=== PATIENT | male | born 1990 | race Caucasian/White ===

== ENCOUNTER → 2018-02-21 | Day surgery (SDC) | payer BC ==
[~2018-02-21] MED LIST: CIPRO500 MG PO; FENTANYL CITRATE/PF 100MCG/2 ML INJ ONE; FLAGYL250 MG PO; HYOSCYAMINE SULFATE 0.5 MG/ML INJ ONE; LEVAQUIN500 MG PO; MIDAZOLAM HCL 5MG/ML 2ML VIAL ONE; PROPOFOL IV EMULSION 10 MG/ML 50 ML VIAL ONE
[2018-02-21 09:30] VITALS: BP 121/73
--- NOTE | 2018-02-21 09:56 | Operative Report ---
DATE OF PROCEDURE: February 21, 2018 PROCEDURE PERFORMED: Colonoscopy with biopsies. REFERRING PHYSICIAN: Dr. Jorge Marie INDICATIONS FOR COLONOSCOPY: History of diverticulitis. MEDICATION: Patient was done under MAC. Please see anesthesiologist note. PROCEDURE IN DETAIL: With the patient in left lateral decubitus position, flexible fiberoptic Olympus colonoscope was inserted into the rectum with ease and advanced all the way to the cecum. The scope was then withdrawn slowly. Mucosa overlying the cecum appeared to be within normal limits. Scattered diverticular disease was pretty much noted throughout the colon. There were some mild patchy inflammatory changes noted in the left colon. Random biopsies were obtained. Similar findings were noted in the rectum, biopsies were obtained. The scope was then retroflexed into the distal rectum, and small internal hemorrhoids were noted, none of which was actively bleeding. The scope was then straightened out. It was subsequently withdrawn. Patient tolerated the procedure well. IMPRESSION: 1. Pandiverticulosis. 2. Mild patchy left-sided colitis. 3. Proctitis. 4. Internal hemorrhoids, none actively bleeding. PLAN: Follow up histology. Initiate VSL#3 1 p.o. every day. Job#: [id number] cc:JORGE MARIE DO
== END | disposition home or self-care (01) ==
LOC: OR 05:51
PROVIDERS: ATTEND Internal Medicine Gastroenterology
DX: Z09 Encounter for follow-up examination after completed treatment for conditions other than malignant neoplasm (principal); K51.50 Left sided colitis without complications; K57.30 Diverticulosis of large intestine without perforation or abscess without bleeding; K62.89 Other specified diseases of anus and rectum; K64.8 Other hemorrhoids; Z68.36 Body mass index [BMI] 36.0-36.9, adult; Z87.01 Personal history of pneumonia (recurrent)
CPT/HCPCS: 45380; J1980; J2250; 45378

== ENCOUNTER 2018-09-07 09:30 | Inpatient (IN) | payer BC ==
[~2018-09-07] VITALS: Ht 172.7 cm; Wt 107.6 kg
[~2018-09-07 09:30] MED LIST changes: -FENTANYL CITRATE/PF 100MCG/2 ML INJ ONE; -HYOSCYAMINE SULFATE 0.5 MG/ML INJ ONE; -MIDAZOLAM HCL 5MG/ML 2ML VIAL ONE; -PROPOFOL IV EMULSION 10 MG/ML 50 ML VIAL ONE
[2018-09-07] MEDS ORDERED: SODIUM CHLORIDE 0.9% 1000ML 1,000 ML IV STA (10:17)
[2018-09-07] MEDS ORDERED: PANTOPRAZOLE 40 MG 10ML VIAL IV NR (10:17)
[2018-09-07] MEDS ORDERED: ONDANSETRON HCL INJ 2MG/ML 2ML 2 MG/ML VIAL IV NR (10:30)
[2018-09-07] MEDS ORDERED: MORPHINE SULFATE INJ 4 MG/ML INJ 1ML IV ONE (10:30)
[2018-09-07 10:54] LABS: BASOPHILS # (AUTO) 0.1 (0.0-0.1); BASOPHILS % 0.6 % (0.0-1.0); EOSINOPHILS % 0.2 % (0.0-6.0); HEMOGLOBIN 13.5 g/dL (14.0-18.0); LYMPHOCYTES # (AUTO) 1.8 (1.0-3.2); LYMPHOCYTES % 14.5 % (18.0-39.1); MEAN CORPUSCULAR HEMOGLOBIN 29.4 pg (28-32); MEAN CORPUSCULAR HGB CONC 32.9 g/dL (31-35); MEAN CORPUSCULAR VOLUME 89.3 fL (81-99); NEUTROPHILS # (AUTO) 9.6 (2.1-6.9); NEUTROPHILS % 76.4 % (38.7-80.0); PLATELET COUNT 401 x10e3/uL (140-360); RED BLOOD COUNT 4.59 x10e6/uL (4.3-5.7); RED CELL DISTRIBUTION WIDTH 12.3 % (11.7-14.4)
[2018-09-07 11:08] LABS: CLARITY,URINE HAZY (CLEAR); COLOR,URINE YELLOW (YELLOW)
[2018-09-07 11:09] LABS: BILIRUBIN,URINE NEGATIVE (NEGATIVE); KETONES,URINE NEGATIVE (NEGATIVE); LEUKOCYTE ESTERASE ,URINE NEGATIVE (NEGATIVE); NITRITE,URINE NEGATIVE (NEGATIVE); PROTEIN,URINE DIPSTICK NEGATIVE (NEGATIVE); URINE UROBILINOGEN 0.2 mg/dL (0.2 - 1)
[2018-09-07 11:10] LABS: INR 1.2; PROTHROMBIN TIME 15.8 seconds (11.9-14.5)
[2018-09-07] MEDS: PIPER-TAZ 3.375 GM 50 ML IV SCH ×3 (11:10→23:47)
[2018-09-07 11:11] LABS: PARTIAL THROMBOPLASTIN TIME 33.7 seconds (23.8-35.5)
[2018-09-07 11:14] LABS: AMORPHOUS SEDIMENT,URINE MANY (FEW); BACTERIA,URINE MANY /HPF; EPITHELIAL CELLS,URINE MODERATE /LPF; RBC,URINE 0-5 /HPF (0-5); WBC,URINE (MAN) 0-5 /HPF (0-5)
[2018-09-07] MEDS ORDERED: DIATRIZOATE MEGL/DIATRIZOA SOD 30 ML BTL PO ONE (11:14)
[2018-09-07 11:15] LABS: CALCIUM OXALATE CRYSTALS,UR FEW (FEW); MUCUS,URINE MODERATE (RARE)
[2018-09-07 11:20] LABS: ALANINE AMINOTRANSFERASE 18 IU/L (0-55); ALBUMIN 3.3 g/dL (3.5-5.0); ALBUMIN/GLOBULIN RATIO 0.8 (0.8-2.0); ALKALINE PHOSPHATASE 58 IU/L (40-150); ANION GAP 13.1 mmol/L (8-16); BLOOD UREA NITROGEN < 5 mg/dL (7-26); CALCIUM 9.4 mg/dL (8.4-10.2); CARBON DIOXIDE 25 mmol/L (22-29); CHLORIDE 103 mmol/L (98-107); EST GLOMERULAR FILTRATION RATE > 60 ML/MIN (60-); GLUCOSE 91 mg/dL (74-118); MAGNESIUM 2.4 MG/DL (1.3-2.1); POTASSIUM 4.1 mmol/L (3.5-5.1); SODIUM 137 mmol/L (136-145)
[2018-09-07 11:21] LABS: BUN/CREATININE RATIO 6 (6-25)
[2018-09-07] MEDS: METRONIDAZOLE 500MG/NS 100ML 100 ML IV SCH ×3 (11:47→18:08)
[2018-09-07] MEDS ORDERED: SODIUM CHLORIDE 0.9% 50ML 50 ML ONE (13:03)
[2018-09-07] MEDS ORDERED: IOPAMIDOL 370 MG/ML 200 ML INFUS..BTL INJ ONE (13:03)
--- NOTE | 2018-09-07 13:12 | Diagnostic Imaging Report ---
EXAM: CT Abdomen and Pelvis WITH contrast INDICATION: Lower abdominal pain, query diverticulitis. COMPARISON: CT abdomen/pelvis without contrast 01/11/2018. TECHNIQUE: Abdomen and pelvis were scanned utilizing a multidetector helical scanner from the lung base to the pubic symphysis after administration of IV contrast. Coronal and sagittal reformations were obtained. Routine protocol was performed. Scan was performed when during portal venous phase. IV CONTRAST: 100 cc of Isovue-370. ORAL CONTRAST: Gastrografin COMPLICATIONS: None RADIATION DOSE: Total DLP: 908.7 mGy*cm Dose modulation, iterative reconstruction, and/or weight based adjustment of the mA/kV was utilized to reduce the radiation dose to as low as reasonably achievable. FINDINGS: LINES and TUBES: None. LOWER THORAX: Unremarkable HEPATOBILIARY: Subcentimeter hepatic hypodensities are too small to characterize, but likely represent cysts. No biliary ductal dilation. GALLBLADDER: No radio-opaque stones or sludge. No wall thickening. SPLEEN: No splenomegaly. PANCREAS: No focal masses or ductal dilatation. ADRENALS: No adrenal nodules KIDNEYS/URETERS: Kidneys enhance symmetrically. No evidence of hydronephrosis, solid mass, or stone. Unchanged appearance of 3.9 cm cyst within the right kidney. Subcentimeter hypodensities in the left kidney are too small to characterize, but may represent cysts. GI TRACT: There is diffuse colonic diverticulosis with focal sigmoid colonic wall thickening and stranding, as seen on series 2, image 69. No evidence of bowel obstruction. Normal appendix. PELVIC ORGANS/BLADDER: Unremarkable. LYMPH NODES: No lymphadenopathy. VESSELS: Unremarkable. PERITONEUM / RETROPERITONEUM: No free air or fluid. BONES AND SOFT TISSUES: Unremarkable. CONCLUSION: Findings of acute sigmoid colonic diverticulitis. No evidence of gross perforation or drainable fluid collection. Signed by: Dr. Robin Krishnamurthy MD on 09/07/2018 1:08 PM
[2018-09-07 13:45] VITALS: BP 119/67
--- NOTE | 2018-09-07 13:45 | NUR ---
PATIENT RECEIVED PER STRETCHER FROM ER. ALERT AND VERBALLY RESPONSIVE. TRANSFERRED SELF FROM STRETCHER TO BED. SKIN WARM AND DRY TO TOUCH WITH TATOOS ALL OVER THE BODY. RESPIRATION EVEN AND UNLABORED, ABDOMEN SOFT AND NON DISTENDED. PATIENT ORIENTED TO SURROUNDINGS. BED IN LOWER POSITION, CALL LIGHT AT REACH. INSTRUCTED TO CALL FOR ASSISTANCE NEEDED.
[2018-09-07] MEDS: SODIUM CHLORIDE 0.9% 1000ML 1,000 ML IV SCH (14:45)
[2018-09-07] MEDS: ONDANSETRON HCL INJ 2MG/ML 2ML 2 MG/ML VIAL IV PRN (16:50)
[2018-09-07] MEDS: MORPHINE SULFATE INJ 4 MG/ML INJ 1ML IV PRN (16:50)
[2018-09-07 18:30] VITALS: BP 106/64
[2018-09-07 20:00] VITALS: BP_SYST 106; BP_SYST 113; BP_DIAS 54; BP_DIAS 64
[2018-09-08] MEDS: SODIUM CHLORIDE 0.9% 1000ML 1,000 ML IV SCH ×4 (00:23→23:30)
[2018-09-08] MEDS: ONDANSETRON HCL INJ 2MG/ML 2ML 2 MG/ML VIAL IV PRN ×3 (00:24→23:30)
[2018-09-08] MEDS: MORPHINE SULFATE INJ 4 MG/ML INJ 1ML IV PRN (00:24)
[2018-09-08] MEDS: METRONIDAZOLE 500MG/NS 100ML 100 ML IV SCH ×4 (00:24→19:20)
[2018-09-08] MEDS: PIPER-TAZ 3.375 GM 50 ML IV SCH (05:39)
[2018-09-08 06:22] LABS: BASOPHILS # (AUTO) 0.1 (0.0-0.1); EOSINOPHILS # (AUTO) 0.1 (0.0-0.4); EOSINOPHILS % 1.3 % (0.0-6.0); HEMATOCRIT 37.8 % (38.2-49.6); HEMOGLOBIN 12.2 g/dL (14.0-18.0); LYMPHOCYTES # (AUTO) 2.9 (1.0-3.2); LYMPHOCYTES % 33.4 % (18.0-39.1); MEAN CORPUSCULAR HEMOGLOBIN 28.8 pg (28-32); MEAN CORPUSCULAR HGB CONC 32.3 g/dL (31-35); MEAN CORPUSCULAR VOLUME 89.4 fL (81-99); MONOCYTES # (AUTO) 0.7 (0.2-0.8); MONOCYTES % 8.2 % (4.4-11.3); NEUTROPHILS # (AUTO) 4.9 (2.1-6.9); NEUTROPHILS % 55.8 % (38.7-80.0); PLATELET COUNT 383 x10e3/uL (140-360); RED BLOOD COUNT 4.23 x10e6/uL (4.3-5.7); RED CELL DISTRIBUTION WIDTH 12.3 % (11.7-14.4)
[2018-09-08 06:58] LABS: ALANINE AMINOTRANSFERASE 16 IU/L (0-55); ALBUMIN 2.9 g/dL (3.5-5.0); ALBUMIN/GLOBULIN RATIO 0.8 (0.8-2.0); ALKALINE PHOSPHATASE 45 IU/L (40-150); ANION GAP 10.8 mmol/L (8-16); BLOOD UREA NITROGEN 6 mg/dL (7-26); BUN/CREATININE RATIO 6 (6-25); CALCIUM 9.1 mg/dL (8.4-10.2); CARBON DIOXIDE 27 mmol/L (22-29); CHLORIDE 106 mmol/L (98-107); CREATININE, SERUM 0.94 mg/dL (0.72-1.25); EST GLOMERULAR FILTRATION RATE > 60 ML/MIN (60-); GLUCOSE 81 mg/dL (74-118); POTASSIUM 4.8 mmol/L (3.5-5.1); SODIUM 139 mmol/L (136-145)
[2018-09-08 08:00] VITALS: BP 119/58
[2018-09-08] MEDS ORDERED: HYDROCODONE/APAP 5MG-325MG TAB PO PRN (08:00)
[2018-09-08 09:46] VITALS: BP 119/58
[2018-09-08] MEDS: CIPROFLOXACIN 400 MG/D5W 200ML 200 ML IV SCH ×2 (09:59→20:54)
[2018-09-08 12:00] VITALS: BP 125/69
--- NOTE | 2018-09-08 14:15 | History and Physical ---
SUBJECTIVE: Left lower quadrant abdominal pain. HISTORY OF PRESENT ILLNESS: This is a 28-year-old male with past medical history of diverticulitis in the past, comes into the ED with complaints of left lower quadrant abdominal pain ongoing since Saturday of last week. He reports that the pain has been appreciated early severe. Reports having some constipation earlier in the week. Denies any chest pain, palpitation. Reports some nausea, but no vomiting. He now reports having some diarrhea. He did follow up with his PCP earlier in the week since then to an imaging center, was told to have constipation and told them to take some stool softeners. Here, imaging studies was consistent with acute diverticulitis. The patient sees Dr. Colindres for a GI specialist. The patient is seen and evaluated at bedside on the medical floor. He is currently doing well with no other issues at this time. REVIEW OF SYSTEMS: Pertinent positive left lower quadrant abdominal pain, decreased oral intake. Pertinent negatives: Denies any chest pain, palpitation, nausea, vomiting, diarrhea, dysuria, hematuria, frequency, urgency, lightheadedness, dizziness, cough, congestion, fever, or any other complaints. The rest of 14-point review of systems are reviewed with the patient and are negative. ALLERGIES: NO KNOWN DRUG ALLERGIES. HOME MEDICATIONS: He takes none. PAST MEDICAL HISTORY: Diverticulitis in the past. PAST SURGICAL HISTORY: None. FAMILY HISTORY: Hypertension, diabetes. SOCIAL HISTORY: No drugs or alcohol. Does not smoke. Good social support. PHYSICAL EXAMINATION: VITAL SIGNS: Temperature is 98.2, pulse 82, respiratory rate is 18, blood pressure 113/54, pulse ox 99% on room air. GENERAL: Not in acute distress. Alert, oriented x3. Cooperative on examination. HEENT: Head is normocephalic and atraumatic. Eyes; pupils are equal, round, and reactive to light bilaterally. Extraocular movements are intact bilaterally. NECK: Supple. Good range of motion. Throat, no evidence of erythema or exudate in the posterior pharynx. Has poor dentition. PULMONARY: Clear to auscultation bilaterally. No wheezing, rales, or rhonchi. No crackles appreciated. CARDIOVASCULAR: Positive S1, S2. No murmurs, rubs, or gallops. ABDOMEN: Soft. Bowel sounds present. He was tender to palpation left lower quadrant. No rebound. No guarding. MUSCULOSKELETAL: Strength is 5/5 throughout. No evidence of any muscle deficits on examination. No weakness appreciated. NEUROLOGICAL: Cranial nerves II through XII grossly intact. No evidence of any neurological deficits on exam. SKIN: Intact. Warm to touch. Good cap refill. PSYCHIATRIC: Normal affect and mood. EXTREMITIES: No edema. Good range of motion throughout. LAB FINDINGS: Show white count 8.7, hemoglobin 12, hematocrit 37, and platelets of 383. Coagulation; PT 15, INR 1.2, PTT 33. Chemistry; sodium 139, potassium 4.8, chloride is 106, bicarb 27, anion gap of 10, BUN 6, creatinine 0.94, glucose is 81. Lactic acid 7.3, which is normal at this hospital. Calcium is 9.1. LFTs were normal. Urinalysis seems to be normal. Microbiology, blood and urine cultures are pending. IMAGING STUDIES: CT abdomen and pelvis shows findings of acute sigmoid colonic diverticulitis. No evidence of gross perforation, drainable fluid collection. IMPRESSION: 1. Acute sigmoid diverticulitis. 2. Nausea with decreased oral intake. 3. Leukocytosis, improving. PLAN: At this time, continue with IV Cipro and Flagyl. Pain control. Nausea medication. Clear liquid diet, advance as tolerated. GI consultation. Reconcile home medications. Discussed plan of care with the patient with nurse present. The patient verbalized understanding. MD BETHANY Carvalho/MODL /[id number]
[2018-09-08 16:00] VITALS: BP 124/60
--- NOTE | 2018-09-08 19:00 | NUR ---
patient received awake, alert, sitting up in bed. no c/o pain noted. ivf continue to infuse without difficulty. pm assessment complete. patient instructed to call for assistance when needed.
--- NOTE | 2018-09-08 19:20 | NUR ---
patient medicated with zofran 4 mg ivp for c/o nausea at this time.
--- NOTE | 2018-09-08 19:20 | NUR ---
1800 flagyl not given. 1800 flagyl given at this time.
[2018-09-08 19:30] VITALS: BP 126/60
[2018-09-08 19:53] VITALS: BP 126/60
--- NOTE | 2018-09-08 20:54 | NUR ---
iv to right ac d/c'd due to leaking at the site. clean dressing applied to site. new #20 gauge placed to the right forearm x 1 stick. ivf/ivabx resumed.
[2018-09-09] VITALS (7 sets, daily range): BP systolic 91–135; BP diastolic 54–91
[2018-09-09] MEDS: MORPHINE SULFATE INJ 4 MG/ML INJ 1ML IV PRN (02:00)
--- NOTE | 2018-09-09 02:00 | NUR ---
patient medicated with morphine 4 mg ivp for abd pain 7/10 at this time.
[2018-09-09] MEDS: METRONIDAZOLE 500MG/NS 100ML 100 ML IV SCH ×5 (05:52→23:06)
[2018-09-09 06:23] LABS: BASOPHILS # (AUTO) 0.1 (0.0-0.1); BASOPHILS % 1.2 % (0.0-1.0); EOSINOPHILS # (AUTO) 0.1 (0.0-0.4); EOSINOPHILS % 1.3 % (0.0-6.0); HEMATOCRIT 37.8 % (38.2-49.6); HEMOGLOBIN 12.4 g/dL (14.0-18.0); LYMPHOCYTES # (AUTO) 2.5 (1.0-3.2); LYMPHOCYTES % 36.5 % (18.0-39.1); MEAN CORPUSCULAR HEMOGLOBIN 29.1 pg (28-32); MEAN CORPUSCULAR HGB CONC 32.8 g/dL (31-35); MEAN CORPUSCULAR VOLUME 88.7 fL (81-99); MONOCYTES # (AUTO) 0.6 (0.2-0.8); MONOCYTES % 8.5 % (4.4-11.3); NEUTROPHILS # (AUTO) 3.6 (2.1-6.9); NEUTROPHILS % 52.1 % (38.7-80.0); PLATELET COUNT 403 x10e3/uL (140-360); RED BLOOD COUNT 4.26 x10e6/uL (4.3-5.7)
[2018-09-09 06:42] LABS: ANION GAP 12.7 mmol/L (8-16); BLOOD UREA NITROGEN 5 mg/dL (7-26); BUN/CREATININE RATIO 6 (6-25); CARBON DIOXIDE 23 mmol/L (22-29); CHLORIDE 104 mmol/L (98-107); EST GLOMERULAR FILTRATION RATE > 60 ML/MIN (60-); GLUCOSE 77 mg/dL (74-118); POTASSIUM 3.7 mmol/L (3.5-5.1); SODIUM 136 mmol/L (136-145)
--- NOTE | 2018-09-09 07:16 | NUR ---
pt alert resp even ad unlabored at this time no distress noted, pt able to make needs known, call light in reach.
[2018-09-09] MEDS: CIPROFLOXACIN 400 MG/D5W 200ML 200 ML IV SCH ×2 (09:13→20:18)
[2018-09-09] MEDS: SODIUM CHLORIDE 0.9% 1000ML 1,000 ML IV SCH ×3 (09:13→23:06)
--- NOTE | 2018-09-09 10:26 | NUR ---
dr. de leon here to see pt.
--- NOTE | 2018-09-09 13:35 | Progress Note ---
DATE: 09/09/2018 Medicine Progress Note SUBJECTIVE: The patient still reports having some left lower quadrant abdominal pain. He is still on a clear liquid diet. He has been afebrile. LABORATORY DATA: Lab findings, white count 6.9, hemoglobin 12.1, hematocrit of 38, platelets of 403. Coagulation is normal. Chemistry; sodium 133, potassium 3.7, chloride 104, bicarb is 23, anion gap of 12, BUN is 5, creatinine is 0.8, glucose 77, calcium is 9. MICROBIOLOGY: Blood cultures negative. Urine cultures were negative. IMAGING STUDIES: None. PHYSICAL EXAMINATION: VITAL SIGNS: Temperature 97.8, pulse 90, respiratory rate is 16, blood pressure 109/63, pulse ox 99% on room air. GENERAL: Not in acute distress. Alert and oriented x3. Cooperative on examination. HEENT: Head is normocephalic, atraumatic. Eyes, pupils are equal, round, and reactive to light bilaterally. Extraocular movements are intact bilaterally. Throat, no evidence of any erythema or exudates in the posterior pharynx. Has poor dentition. NECK: Supple. Good range of motion. PULMONARY: Clear to auscultation bilaterally. No wheezing, no rales, no rhonchi, and no crackles. CARDIOVASCULAR: Positive S1, S2. No murmurs, rubs, or gallops appreciated. ABDOMEN: Soft, nondistended, and tender to palpation in the left lower quadrant. Bowel sounds present. MUSCULOSKELETAL: Strength is 5/5 throughout. No evidence of any muscle deficits on examination. No weakness appreciated. NEUROLOGIC: Cranial nerves 2 through 12 are grossly intact. No evidence of neurological deficits on exam. SKIN: Intact. Warm to touch. Good cap refill. PSYCHIATRIC: Normal affect and mood. EXTREMITIES: No edema. Good range of motion throughout. IMPRESSION: 1. Acute sigmoid diverticulitis. 2. Nausea with decreased oral intake, now improving. 3. Leukocytosis, improving. PLAN: At this time, continue with IV antibiotics of Cipro and Flagyl. He is on pain control. Clear liquid diet. Antinausea medication. Diet will be advanced per GI recommendations. The patient has questions about surgical intervention in the event, he needs to have sigmoid resection, in which I deferred this to the GI and which he can speak with the patient. Apparently, the patient has had at least 3 recurrences of sigmoid colitis as well. Otherwise, we will continue same plan of care. MD BETHANY Carvalho/ZAIDA /[id number]
--- NOTE | 2018-09-09 19:00 | NUR ---
patient received awake, alert, sitting up in recliner. no c/o pain noted. ivf continue to infuse without difficulty. pm assessment complete. patient instructed to call for assistance when needed.
--- NOTE | 2018-09-09 19:00 | NUR ---
report given to oncoming nurse,for continued care.
[2018-09-10] VITALS: BP 120/71
[2018-09-10 04:00] VITALS: BP 110/70
[2018-09-10] MEDS: METRONIDAZOLE 500MG/NS 100ML 100 ML IV SCH ×2 (05:09→11:15)
[2018-09-10 06:21] LABS: BASOPHILS # (AUTO) 0.1 (0.0-0.1); BASOPHILS % 1.1 % (0.0-1.0); EOSINOPHILS # (AUTO) 0.1 (0.0-0.4); EOSINOPHILS % 0.9 % (0.0-6.0); LYMPHOCYTES # (AUTO) 2.6 (1.0-3.2); LYMPHOCYTES % 35.1 % (18.0-39.1); MEAN CORPUSCULAR HEMOGLOBIN 28.8 pg (28-32); MEAN CORPUSCULAR HGB CONC 32.6 g/dL (31-35); MEAN CORPUSCULAR VOLUME 88.5 fL (81-99); MONOCYTES # (AUTO) 0.7 (0.2-0.8); MONOCYTES % 8.9 % (4.4-11.3); NEUTROPHILS % 53.5 % (38.7-80.0); PLATELET COUNT 454 x10e3/uL (140-360); RED BLOOD COUNT 4.86 x10e6/uL (4.3-5.7); RED CELL DISTRIBUTION WIDTH 11.9 % (11.7-14.4)
[2018-09-10 06:41] LABS: ANION GAP 11.3 mmol/L (8-16); BLOOD UREA NITROGEN 5 mg/dL (7-26); BUN/CREATININE RATIO 6 (6-25); CALCIUM 9.3 mg/dL (8.4-10.2); CARBON DIOXIDE 24 mmol/L (22-29); CHLORIDE 105 mmol/L (98-107); CREATININE, SERUM 0.81 mg/dL (0.72-1.25); EST GLOMERULAR FILTRATION RATE > 60 ML/MIN (60-); GLUCOSE 82 mg/dL (74-118); POTASSIUM 4.3 mmol/L (3.5-5.1); SODIUM 136 mmol/L (136-145)
--- NOTE | 2018-09-10 06:56 | NUR ---
RECEIVED PATIENT RESTING IN BED, RESPIRATIONS EVEN AND UNLABORED, NO ACUTE DISTRESS NOTED. CALL LIGHT WITHIN REACH. BED IN THE LOWEST POSITION.
[2018-09-10 07:05] VITALS: BP 114/71
[2018-09-10 08:24] VITALS: BP 114/71
[2018-09-10] MEDS: SODIUM CHLORIDE 0.9% 1000ML 1,000 ML IV SCH (09:08)
[2018-09-10] MEDS: CIPROFLOXACIN 400 MG/D5W 200ML 200 ML IV SCH (09:08)
--- NOTE | 2018-09-10 11:06 | NUR ---
PER DR. Iam LAMB, PATIENT IS OK TO GO HOME AND TO CALL OFFICE FOR FOLLOW UP APPOINTMENT. NOTIFIED DR. BRADFORD, PER MD NUNEZ PATIENT AFTER HE TOLERATES GI SOFT DIET FOR LUNCH AND OK TO GIVE PATIENT WORK EXCUSE SIGNED BY NURSE WITH MD NAME ON IT.
--- NOTE | 2018-09-10 12:20 | Progress Note ---
DATE: 09/10/2018 Medicine Progress Note SUBJECTIVE: The patient is now advanced to full liquid diet. We are going to advance his diet as tolerated. Await for final recommendations by GI for discharge home. The patient . PHYSICAL EXAMINATION: VITAL SIGNS: Temperature 97.4, pulse 62, respirations 18, blood pressure 114/71, pulse ox 100% on room air. GENERAL: Not in acute distress. Alert and oriented x3. Cooperative on examination. HEENT: Head is normocephalic, atraumatic. Eyes, pupils are equal, round, and reactive to light bilaterally. Extraocular movements are intact bilaterally. Throat, no evidence of any erythema or exudates in the posterior pharynx. Has poor dentition. NECK: Supple. Good range of motion. PULMONARY: Clear to auscultation bilaterally. No wheezing, no rales, no rhonchi, and no crackles appreciated. CARDIOVASCULAR: Positive S1, S2. No murmurs, rubs, or gallops appreciated. ABDOMEN: Soft, nondistended, and tender to palpation. Bowel sounds are present. MUSCULOSKELETAL: Strength is 5/5 throughout. No evidence of any muscle deficits on examination. No weakness appreciated. NEUROLOGIC: Cranial nerves 2 through 12 are grossly intact. No evidence of neurological deficits on exam. SKIN: Intact. Warm to touch. Good cap refill. PSYCHIATRIC: Normal affect and mood. EXTREMITIES: No edema. Good range of motion throughout. LAB FINDINGS: Show white count 7.4, hemoglobin 14, hematocrit 43, platelets of 454. Chemistry; sodium 133, potassium 4.3, chloride 105, bicarb 24, anion gap of 11, BUN is 5, creatinine is 0.81, glucose is 82, calcium is 9.3. MICROBIOLOGY: Blood and urine cultures were negative. IMAGING STUDIES: None. IMPRESSION: 1. Acute sigmoid diverticulitis. 2. Nausea with decreased oral intake, now improving. 3. Leukocytosis, improving. PLAN: Continue with IV antibiotics 2.52. In the event he gets discharged there is a script for Cipro and Flagyl for x10 days in the chart. He is on full liquid diet advance as tolerated. Await final recommendation by GI. The patient is otherwise doing well. He is eager to be discharged. If cleared by GI he will be discharged home later today. MD BETHANY Carvalho/ZAIDA /[id number]
[2018-09-10 12:53] VITALS: BP 125/69
--- NOTE | 2018-09-10 13:32 | NUR ---
RECEIVED DC ORDER FROM MD. PATIENT IS IN STABLE CONDITION. DENIES PAIN OR DISCOMFORT. IV LINE TO RIGHT FOREARM DCD AT THIS TIME WITH TIP INTACT, PRESSURE APPLIED TO SITE, NO BLEEDING NOTED. DISCHARGE TEACHING PROVIDED TO PATIENT, HE VERBALIZED UNDERSTANDING. DISCHARGE FOLDER AND PERSONAL ITEMS ON HAND. PATIENT ACCOMPANIED TO PRIVATE AUTO VIA WHEELCHAIR BY STAFF.
--- NOTE | 2018-09-12 05:32 | Discharge Summary ---
FINAL DISCHARGE DIAGNOSES: 1. Acute sigmoid diverticulitis. 2. Nausea and vomiting, all resolved. 3. Dehydration, resolved. 4. Leukocytosis, resolved. CONSULTANTS: Dr. Colindres of GI. PHYSICAL EXAMINATION: VITAL SIGNS: Temperature is 97.9, pulse 85, respiratory rate is 20, blood pressure 125/69, and pulse ox 98% on room air. LAB FINDINGS: Show white count 7.4, hemoglobin 14, hematocrit is 43, and platelets of 454. Coagulations were normal. Chemistry: Sodium 132, potassium 4.3, chloride 105, bicarb 24, anion gap of 11, BUN 5, creatinine 0.81, glucose is 82, calcium 9.3. LFTs were normal. MICROBIOLOGY: Blood and urine cultures were all negative. IMAGING STUDIES: CT abdomen and pelvis showed findings of acute sigmoid colonic diverticulitis. No evidence of gross perforation or drainable fluid collection. HOSPITAL COURSE: A 28-year-old male with known history of acute diverticulitis, comes into the ED with complaints of left lower quadrant abdominal pain for the last several days. The patient was admitted, started on broad-spectrum IV antibiotics for Cipro, Flagyl and GI was consulted. The patient initially was n.p.o., then transitioned to advance diet as tolerated. The patient tolerated diet well. On admission, he did have elevated white count, but then downtrended to normal on discharge with 7.4. The patient was afebrile, tolerating diet well with no other complaints. The patient was then cleared for discharge home by GI. The patient was discharged on oral Cipro, Flagyl and will follow up with GI about one week time. On the day of discharge, vital signs stable, labs reviewed and stable. The patient was seen, evaluated, examined thoroughly on the day of discharge. No other complaints. The patient verbalized understanding and agreed to plan of care to followup appointment as an outpatient with the primary care physician in 1 week and GI in 1 to 2 weeks' time. MEDICATIONS: See med reconciliation form including Cipro and Flagyl antibiotics x10 days. CONDITION: Stable. DIET: Heart healthy. In the event of any worsening symptoms, the patient was advised to come back to the ED for further evaluation. Discharge summary took greater than 35 minutes. Jiries S Dahu, MD JSD/MODL /[id number]
== END 2018-09-10 13:48 | disposition home or self-care (01) | DRG 392 ==
LOC: ER 09:30 → ERHOLD 12:31 → MED/SURG3 13:30
PROVIDERS: ADMIT Internal Medicine; ATTEND Internal Medicine
DX: K57.32 Diverticulitis of large intestine without perforation or abscess without bleeding (principal); E86.0 Dehydration; D72.829 Elevated white blood cell count, unspecified
CPT/HCPCS: 36415; 74177; 80048; 80053; 81001; 83605; 83735; 85025; 85610; 85730; 87040; 87086; 99284; J2270; J2405; J2543; J7030; Q9967

== ENCOUNTER 2018-10-22 06:08 | Inpatient (IN) | payer BC ==
[2018-10-20 10:28] LABS: BASOPHILS # (AUTO) 0.1 (0.0-0.1); BASOPHILS % 0.9 % (0.0-1.0); EOSINOPHILS # (AUTO) 0.1 (0.0-0.4); EOSINOPHILS % 0.5 % (0.0-6.0); HEMATOCRIT 47.8 % (38.2-49.6); HEMOGLOBIN 15.7 g/dL (14.0-18.0); LYMPHOCYTES # (AUTO) 2.2 (1.0-3.2); LYMPHOCYTES % 23.5 % (18.0-39.1); MEAN CORPUSCULAR HEMOGLOBIN 28.9 pg (28-32); MEAN CORPUSCULAR HGB CONC 32.8 g/dL (31-35); MEAN CORPUSCULAR VOLUME 87.9 fL (81-99); MONOCYTES # (AUTO) 0.7 (0.2-0.8); MONOCYTES % 7.3 % (4.4-11.3); NEUTROPHILS # (AUTO) 6.4 (2.1-6.9); NEUTROPHILS % 67.4 % (38.7-80.0); PLATELET COUNT 401 x10e3/uL (140-360); RED BLOOD COUNT 5.44 x10e6/uL (4.3-5.7)
[~2018-10-22] VITALS: Ht 172.7 cm; Wt 105.7 kg
[2018-10-22] MEDS ORDERED: MIDAZOLAM HCL 2 MG/2 ML VIAL ONE (07:54)
[2018-10-22] MEDS ORDERED: SUGAMMADEX SODIUM 200 MG/2 ML VIAL IV ONE (08:00)
[2018-10-22] MEDS ORDERED: MINERAL OIL STERILE 10ML VIAL ONE (09:45)
[2018-10-22] MEDS ORDERED: FENTANYL CITRATE/PF 100MCG/2 ML INJ ONE ×2 (09:57→12:45)
[2018-10-22] MEDS ORDERED: BUPIVACAINE 0.25%/EPI 30ML SDV INJ ONE (11:18)
[2018-10-22] MEDS ORDERED: PROMETHAZINE HCL (IM) 25 MG/ML VIAL IV PRN (12:30)
[2018-10-22] MEDS ORDERED: HYDROMORPHONE 1MG/1ML INJ IV PRN (12:30)
[2018-10-22] MEDS ORDERED: ACETAMINOPHEN 1000 MG/100 ML IV PRN (12:30)
--- NOTE | 2018-10-22 13:09 | Operative Report ---
DATE OF PROCEDURE: 10/22/2018 SURGEON: Ziggy Paiz MD PREOPERATIVE DIAGNOSIS: Recurrent perforated sigmoid diverticulitis. POSTOPERATIVE DIAGNOSIS: Recurrent perforated sigmoid diverticulitis. OPERATION PERFORMED: Laparoscopic-assisted low anterior resection with mobilization of the splenic flexure. PAPER REEL OPERATOR: Dr. Rigo Paiz and YVES Johnson. ANESTHESIA: General. COMPLICATIONS: None. ESTIMATED BLOOD LOSS: 50 mL. DESCRIPTION OF PROCEDURE: With the patient lying in bed in the supine position and good general endotracheal anesthesia with the legs up in stirrups, the abdomen and perineum were prepped with Betadine solution and draped in the usual manner. A Veress needle was introduced into the umbilicus and pneumoperitoneum was established without any difficulty. An 11 mm trocar was placed into the umbilicus and a 10 mm video laparoscope was placed into the intra-abdominal cavity. Under direct vision, a 5 mm trocar was placed in the left upper quadrant and another one in the left lower quadrant and another one in the right mid abdomen. Video laparoscopy at this point revealed the colon to be stuck to the lateral gutter up to the level of the sigmoid colon. The patient had a rather redundant fatty colon all the way up to the mid transverse colon with a large amount of omentum. The area of inflammation was seen to be at the level of the mid sigmoid colon. The patient was known to have diverticulosis all the way around the entire colon, but the area that was thickened and inflamed showing all of the signs of the multiple episodes of diverticulitis was in the sigmoid colon. The adhesions of the sigmoid colon to the lateral gutter were then slowly and carefully taken down. The white line was then opened laterally and all the way up to the splenic flexure. The left colon was then mobilized off the lateral gutter without any difficulty. The splenic flexure was then slowly and carefully brought down so that the colon would reach all the way down into the pelvis. The colon was mobilized all the way up to about the mid transverse colon. Once we had this well mobilized proximally and distally, a small incision was then made in the left lower quadrant and a muscle-splitting incision was carried down through the muscles all the way down to the peritoneum and the peritoneum was opened and the abdomen was entered. At this point, the colon was easily mobilized because it had already been taken down laparoscopically. The colon at the level of the rectosigmoid junction was then freed up circumferentially and divided with the contour device. The mesentery of the colon proximally was then slowly and carefully taken down with the Harmonic scalpel all the way up to the level of the distal transverse colon that had already been mobilized. At this point, the colon was freed up circumferentially, divided with a AMELIA-75 stapler, and the specimen was sent for pathological examination. Both proximal and distal colons were then cleared up and prepared for the anastomosis. Hemostasis was ascertained. The proximal colon staple line was then removed and a size 33 EEA stapler was placed without any difficulty and held in place with a pursestring suture of 2-0 Prolene. We then went transanally and rectum was dilated all the way up to a 33 EEA dilator. The dilator was then introduced and brought out through the anterior aspect of the mid of the staple line in the rectum. The anvil and stapler were then joined. The stapler was then closed and fired. Two good donuts were obtained. The stapler was then removed and the donuts were checked. After this was done, gloves and instruments were changed. The anastomosis was then reinforced circumferentially with interrupted sutures of 3-0 silk. The whole area was thoroughly irrigated, perfect hemostasis was ascertained and the wounds were then closed in layers. The peritoneum was closed with a running suture of 0 Vicryl, the muscle layer was approximated with 0 Vicryl, the external oblique aponeurosis was closed with a running suture of 0 Vicryl, subcutaneous tissue was approximated with 2-0 chromic and the skin was closed with clips. All layers were infiltrated on the way out with solution of 0.25% Marcaine. The umbilical 11 mm trocar port site was closed with a 0 Vicryl for the fascia, 3-0 Vicryl for subcutaneous tissue and all puncture wounds were closed with subcuticular 5-0 Vicryl. Benzoin and Steri-Strips were applied. Dressings were placed. Sponge, lap, and needle count was correct. The patient tolerated the procedure well and returned to the recovery room in stable condition. MD HIRA Stubbs/ZAIDA /[id number]
[2018-10-22] MEDS ORDERED: HYDROMORPHONE 0.2MG/ML-SOD CHL 30ML PCA SYRINGE IV ONE (13:19)
[2018-10-22] MEDS ORDERED: HYDROMORPHONE 2MG/ML 2 MG/ML ML ONE (13:33)
[2018-10-22] MEDS ORDERED: HYDROMORPHONE 2MG/ML 2 MG/ML ML IV PRN (14:15)
--- NOTE | 2018-10-22 15:32 | NUR ---
RECEIVED PATIENT FROM RECOVERY. PATIENT A/O X3, EVEN RESPIRATIONS UNLABORED ON 2LNC. ABDOMINAL DRESSINGS CLEAN/DRY/INTACT. SCD'S BILATERALLY. RIGHT HAND 20 GAUGE IV WITH D5LR @ 100 CC/HR. NGT TO RIGHT NARE- LOW CONTINUOUS SUCTION. VITAL SIGNS STABLE. NO SIGNS OF DISTRESS. ORIENTED PATIENT TO ROOM AND CALL LIGHT. BED LOW, WHEELS LOCKED, SIDE RAILS X2. CALL LIGHT IN REACH WILL CONTINUE TO MONITOR PATIENT.
[2018-10-22] MEDS ORDERED: PROMETHAZINE 12.5MG/ NACL 0.9% 50 ML IV PRN (15:45)
[2018-10-22] MEDS ORDERED: ACETAMINOPHEN 1000 MG/100 ML 100 ML IV PRN (15:45)
[2018-10-22] MEDS: HYDROMORPHONE 2MG/ML 2 MG/ML ML IV PRN ×3 (16:11→21:34)
[2018-10-22] MEDS: DEXTROSE 5%/LACTATED RINGERS 1,000 ML IV SCH ×2 (16:11→23:33)
[2018-10-22] MEDS: SODIUM CHLORIDE 0.9% 250ML IRRIG IR SCH ×2 (16:11→20:30)
[2018-10-22] MEDS: PANTOPRAZOLE 40 MG 10ML VIAL IV SCH (16:11)
[2018-10-22 16:20] VITALS: BP 120/67
[2018-10-22 16:23] VITALS: BP 120/67
[2018-10-22 16:41] VITALS: BP 120/67
[2018-10-22] MEDS ORDERED: CEFOXITIN SOD 1 GM VIAL ONE (16:45)
[2018-10-22] MEDS: CEFOXITIN 1GM/ D5W 50ML 50 ML IV SCH ×2 (17:25→23:33)
[2018-10-22] MEDS ORDERED: SEVOFLURANE INHAL SOLN 250 ML PEN BTL ONE (18:08)
[2018-10-22] MEDS ORDERED: ACETAMINOPHEN 1000 MG/100 ML IV ONE (18:08)
[2018-10-22] MEDS ORDERED: PROPOFOL IV EMULSION 10 MG/ML 20 ML VIAL ONE (18:08)
[2018-10-22] MEDS ORDERED: DEXAMETHASONE SOD PHOS INJ 4 MG/ML VIAL ONE (18:08)
[2018-10-22] MEDS ORDERED: KETOROLAC TROMETHAMINE 30 MG/ML VIAL ONE (18:08)
[2018-10-22] MEDS ORDERED: LIDOCAINE HCL 2% JELLY 5 ML TUBE ONE (18:08)
[2018-10-22] MEDS ORDERED: ROCURONIUM BROMIDE 10 MG/ML 5ML VIAL ONE (18:08)
[2018-10-22] MEDS ORDERED: LIDOCAINE HCL 2% LOCAL INJ 5 ML SDV VIAL INJ ONE (18:08)
[2018-10-22] MEDS ORDERED: ONDANSETRON HCL INJ 2MG/ML 2ML 2 MG/ML VIAL ONE (18:08)
--- NOTE | 2018-10-22 18:24 | NUR ---
DR. RANGEL MAKING ROUNDS. VERBAL ORDER FROM DR. RANGEL TO GIVE NEXT DOSE OF DILAUDID. PAIN MEDIATION GIVEN.
[2018-10-22 20:00] VITALS: BP 114/66
--- NOTE | 2018-10-22 21:00 | NUR ---
Latif care given.abd dressing dry.ng tube on low contd.wall suction.no resp.distress.bed locked and in lowest position.phone and call light within reach.instructed to call for assistance as needed.
[2018-10-22 21:46] VITALS: BP 114/66
[2018-10-23] VITALS (8 sets, daily range): BP systolic 107–125; BP diastolic 56–67
[2018-10-23] MEDS: SODIUM CHLORIDE 0.9% 250ML IRRIG IR SCH ×4 (00:49→12:21)
[2018-10-23] MEDS: HYDROMORPHONE 2MG/ML 2 MG/ML ML IV PRN ×4 (00:55→11:12)
--- NOTE | 2018-10-23 03:00 | NUR ---
RESTING WELL .STABLE CONDITION.
[2018-10-23 06:06] LABS: BASOPHILS % 0.1 % (0.0-1.0); HEMATOCRIT 36.5 % (38.2-49.6); HEMOGLOBIN 12.7 g/dL (14.0-18.0); LYMPHOCYTES # (AUTO) 1.2 (1.0-3.2); LYMPHOCYTES % 8.4 % (18.0-39.1); MEAN CORPUSCULAR HEMOGLOBIN 29.9 pg (28-32); MEAN CORPUSCULAR HGB CONC 34.8 g/dL (31-35); MEAN CORPUSCULAR VOLUME 85.9 fL (81-99); MONOCYTES # (AUTO) 1.2 (0.2-0.8); MONOCYTES % 8.8 % (4.4-11.3); NEUTROPHILS # (AUTO) 11.5 (2.1-6.9); NEUTROPHILS % 82.3 % (38.7-80.0); PLATELET COUNT 321 x10e3/uL (140-360); RED BLOOD COUNT 4.25 x10e6/uL (4.3-5.7); RED CELL DISTRIBUTION WIDTH 13.1 % (11.7-14.4)
[2018-10-23 06:32] LABS: ANION GAP 10.1 mmol/L (8-16); BLOOD UREA NITROGEN 10 mg/dL (7-26); BUN/CREATININE RATIO 14 (6-25); CALCIUM 8.9 mg/dL (8.4-10.2); CARBON DIOXIDE 24 mmol/L (22-29); CHLORIDE 104 mmol/L (98-107); CREATININE, SERUM 0.73 mg/dL (0.72-1.25); EST GLOMERULAR FILTRATION RATE > 60 ML/MIN (60-); GLUCOSE 123 mg/dL (74-118); POTASSIUM 4.1 mmol/L (3.5-5.1); SODIUM 134 mmol/L (136-145)
--- NOTE | 2018-10-23 07:00 | NUR ---
CLOUDY COLORED URINE DRAINING.REPORT GIVEN TO THE ONCOMING RN.WALKING ROUNDS DONE.STABLE CONDITION.
--- NOTE | 2018-10-23 07:17 | NUR ---
RECEIVED PATIENT RESTING IN BED NO SIGNS OF DISTRESS. BED LOW, WHEELS LOCKED, SIDE RAILS X2. CALL LIGHT IN REACH WILL CONTINUE TO MONITOR PATIENT.
[2018-10-23] MEDS: DEXTROSE 5%/LACTATED RINGERS 1,000 ML IV SCH ×2 (09:33→19:16)
--- NOTE | 2018-10-23 09:33 | NUR ---
PATIENT A/O X3, EVEN RESPIRATIONS UNLABORED ON 2LNC. BOWEL SOUNDS ACTIVE. NO BM OR GAS SINCE SURGERY. JUAREZ IN PLACE, URINE CLOUDY YELLOW. RIGHT HAND 20 GAUGE IV WITH D5LR @ 100 CC/HR. NGT TO RIGHT NARE LCS. SCD'S IN PLACE BILATERALLY. ABDOMINAL DRESSING CLEAN DRY AND INTACT. CALL LIGHT IN REACH. EDUCATED PATIENT TO CALL FOR ASSISTANCE. MOTHER AT BEDSIDE. WILL CONTINUE TO MONITOR PATIENT.
[2018-10-23] MEDS ORDERED: NALOXONE HCL INJ 0.4 MG/ML AMP IV PRN (14:30)
[2018-10-23] MEDS ORDERED: ACETAMINOPHEN 1000 MG/100 ML IV PRN (14:30)
[2018-10-23] MEDS ORDERED: ACETAMINOPHEN 1000 MG/100 ML 100 ML IV PRN (14:45)
[2018-10-23] MEDS: HYDROMORPHONE 0.2MG/ML-SOD CHL 30ML PCA SYRINGE IV PRN (15:10)
--- NOTE | 2018-10-23 15:10 | NUR ---
NEW ORDER FROM DR. RANGEL FOR SPRING WINDER PUMP AND TO REMOVE NG TUBE AND KEEP PATIENT NPO. ORDERS IMPLEMENTED.
--- NOTE | 2018-10-23 15:15 | NUR ---
REMOVED PATIENTS NG TUBE. TIP INTACT ON REMOVAL.
--- NOTE | 2018-10-23 16:30 | NUR ---
AMBULATED WITH PATIENT IN ROOM. STEADY GAIT, NO SIGNS OF DISTRESS. ASSISTED PATIENT BACK TO BED. CALL LIGHT IN REACH. WILL CONTINUE TO MONITOR.
[2018-10-23] MEDS: PANTOPRAZOLE 40 MG 10ML VIAL IV SCH (17:09)
--- NOTE | 2018-10-23 20:10 | NUR ---
was in the unit.pt in stable condiiton.assessment done.no resp.distress.iv to right hand#20g.bed locked and in lowest position.phone and call light within reach.instructed to call for assistance as needed.on sash repairer dilaudid.
[2018-10-24] VITALS (7 sets, daily range): BP systolic 113–131; BP diastolic 58–78
[2018-10-24] MEDS: HYDROMORPHONE 0.2MG/ML-SOD CHL 30ML PCA SYRINGE IV PRN ×3 (00:35→21:57)
[2018-10-24] MEDS: DEXTROSE 5%/LACTATED RINGERS 1,000 ML IV SCH ×3 (04:23→23:40)
--- NOTE | 2018-10-24 06:07 | NUR ---
Bhavya d/c @ 6am.pt is due to void.
[2018-10-24] MEDS ORDERED: BISACODYL 10 MG SUPP PR ONE (08:00)
[2018-10-24 08:52] LABS: BASOPHILS # (AUTO) 0.1 (0.0-0.1); BASOPHILS % 0.5 % (0.0-1.0); EOSINOPHILS # (AUTO) 0.1 (0.0-0.4); EOSINOPHILS % 0.8 % (0.0-6.0); HEMATOCRIT 37.2 % (38.2-49.6); HEMOGLOBIN 12.5 g/dL (14.0-18.0); LYMPHOCYTES # (AUTO) 2.9 (1.0-3.2); LYMPHOCYTES % 27.6 % (18.0-39.1); MEAN CORPUSCULAR HEMOGLOBIN 29.4 pg (28-32); MEAN CORPUSCULAR HGB CONC 33.6 g/dL (31-35); MEAN CORPUSCULAR VOLUME 87.5 fL (81-99); MONOCYTES # (AUTO) 0.9 (0.2-0.8); MONOCYTES % 8.6 % (4.4-11.3); NEUTROPHILS # (AUTO) 6.6 (2.1-6.9); PLATELET COUNT 297 x10e3/uL (140-360); RED BLOOD COUNT 4.25 x10e6/uL (4.3-5.7); RED CELL DISTRIBUTION WIDTH 13.2 % (11.7-14.4)
[2018-10-24 09:55] LABS: ANION GAP 10.5 mmol/L (8-16); BLOOD UREA NITROGEN 8 mg/dL (7-26); BUN/CREATININE RATIO 11 (6-25); CALCIUM 8.7 mg/dL (8.4-10.2); CARBON DIOXIDE 27 mmol/L (22-29); CHLORIDE 104 mmol/L (98-107); CREATININE, SERUM 0.72 mg/dL (0.72-1.25); EST GLOMERULAR FILTRATION RATE > 60 ML/MIN (60-); GLUCOSE 95 mg/dL (74-118); POTASSIUM 3.5 mmol/L (3.5-5.1); SODIUM 138 mmol/L (136-145)
[2018-10-24] MEDS: PANTOPRAZOLE 40 MG 10ML VIAL IV SCH (17:00)
--- NOTE | 2018-10-24 19:00 | NUR ---
RECEIVED PATIENT IN BEDSIDE REPORT. PATIENT REPORTS PAIN 7-8, BUT STATES IT IS BECAUSE HE WAS JUST WALKING; WHEN SITTING STILL PATIENT REPORTS PAIN 3-5. R HAND 20G IV IS ASYMPTOMATIC, INTACT, AND PATENT, RUNNING D5LR AT 100ML/HR. NO S&S OF DISTRESS NOTED. BED LOCKED IN LOWEST POSITION, SIDE RAILS UPX2, CALL LIGHT IN REACH.
[2018-10-24] MEDS: BISACODYL 10 MG SUPP PR SCH (22:03)
[2018-10-25] VITALS (8 sets, daily range): BP systolic 115–142; BP diastolic 63–75
[2018-10-25] MEDS: HYDROMORPHONE 0.2MG/ML-SOD CHL 30ML PCA SYRINGE IV PRN (08:00)
[2018-10-25] MEDS: BISACODYL 10 MG SUPP PR SCH (08:19)
--- NOTE | 2018-10-25 08:19 | NUR ---
AMBULATING IN HALLWAY WITH USE OF WALKER, PT STATES "STILL NEED WALKER", STEADY GAIT, NO DISTRESS NOTED
[2018-10-25 09:02] LABS: BASOPHILS # (AUTO) 0.1 (0.0-0.1); BASOPHILS % 0.9 % (0.0-1.0); EOSINOPHILS # (AUTO) 0.2 (0.0-0.4); EOSINOPHILS % 1.6 % (0.0-6.0); HEMATOCRIT 36.8 % (38.2-49.6); HEMOGLOBIN 12.6 g/dL (14.0-18.0); LYMPHOCYTES % 30.5 % (18.0-39.1); MEAN CORPUSCULAR HEMOGLOBIN 29.6 pg (28-32); MEAN CORPUSCULAR HGB CONC 34.2 g/dL (31-35); MEAN CORPUSCULAR VOLUME 86.4 fL (81-99); MONOCYTES # (AUTO) 0.9 (0.2-0.8); MONOCYTES % 9.4 % (4.4-11.3); NEUTROPHILS # (AUTO) 5.7 (2.1-6.9); NEUTROPHILS % 57.2 % (38.7-80.0); PLATELET COUNT 300 x10e3/uL (140-360); RED BLOOD COUNT 4.26 x10e6/uL (4.3-5.7); RED CELL DISTRIBUTION WIDTH 12.8 % (11.7-14.4)
--- NOTE | 2018-10-25 09:08 | NUR ---
PT REPORTS COUGHING THAT "STARTED LAST NIGHT", NO COUGHING AT THIS TIME, STANDING AT SIDE OF BED, VOICES NO NEEDS AT THIS TIME
[2018-10-25 09:47] LABS: ANION GAP 10.6 mmol/L (8-16); BLOOD UREA NITROGEN 7 mg/dL (7-26); BUN/CREATININE RATIO 9 (6-25); CARBON DIOXIDE 29 mmol/L (22-29); CHLORIDE 100 mmol/L (98-107); CREATININE, SERUM 0.75 mg/dL (0.72-1.25); EST GLOMERULAR FILTRATION RATE > 60 ML/MIN (60-); GLUCOSE 86 mg/dL (74-118); POTASSIUM 3.6 mmol/L (3.5-5.1); SODIUM 136 mmol/L (136-145)
[2018-10-25] MEDS: DEXTROSE 5%/LACTATED RINGERS 1,000 ML IV SCH ×2 (10:30→19:34)
--- NOTE | 2018-10-25 10:30 | NUR ---
AMBULATING IN HALLWAY, STEADY GAIT
--- NOTE | 2018-10-25 11:08 | NUR ---
MD Grecia RANGEL INTO SEE PT, MADE AWARE OF PT HAVING SMALL LIQUID BM WITH SMALL AMOUNT OF BLOOD, MADE AWARE LOW GRADE TEMP AND PT C/O "COUGH THAT STARTED LAST NIGHT", PT REPORTED SMALL AMOUNT OF FLATUS TO MD, ORDERS NOTED
[2018-10-25] MEDS: PANTOPRAZOLE 40 MG 10ML VIAL IV SCH (16:00)
--- NOTE | 2018-10-25 16:00 | NUR ---
AMBULATING IN HALLWAY, STEADY GAIT
--- NOTE | 2018-10-25 17:45 | NUR ---
TEMPERATURE RECHECKED AT 97.2F AXILLARY
--- NOTE | 2018-10-25 18:55 | NUR ---
RECEIVED PATIENT IN BEDSIDE REPORT. PATIENT REPORTS PAIN IS AT 5-6, A&OX4. NO S&S OF DISTRESS NOTED. R HAND 20G ASYMPTOMATIC, INTACT, AND PATENT. BED LOCKED IN LOWEST POSITION, SIDE RAILS UPX2, CALL LIGHT IN REACH.
--- NOTE | 2018-10-25 19:34 | NUR ---
PATIENT COMPLAINING OF FEELING FEVERISH, ASKED TO HAVE HIS TEMP CHECKED. TYMPANIC THERMOMETER READ 103.5, ORAL THERMOMETER READ 101.1. CALL PLACED TO MD Cesilia RANGEL. NO NEW ORDERS RECEIVED BEYOND MONITORING. CALL BACK IF ORAL TEMP GOES ABOVE 102. CXR IN AM. REMINDED PATIENT TO TURN, COUGH, AND DEEP BREATH, USE INCENTIVE SPIROMETER, AND WALK. WILL CONTINUE TO MONITOR. PATIENT AND FAMILY VERBALIZED UNDERSTANDING.
--- NOTE | 2018-10-25 19:50 | NUR ---
PATIENTS TEMP NOTED TO BE 104. CALL PLACED TO MD RANGEL. WAITING CALL BACK.
--- NOTE | 2018-10-25 20:05 | NUR ---
ORDERS RECEIVED FROM MD Grecia RANGEL.
[2018-10-25] MEDS ORDERED: ACETAMINOPHEN 1000 MG/100 ML IV PRN (20:15)
[2018-10-25 20:37] LABS: BASOPHILS # (AUTO) 0.1 (0.0-0.1); BASOPHILS % 0.7 % (0.0-1.0); EOSINOPHILS # (AUTO) 0.1 (0.0-0.4); EOSINOPHILS % 1.1 % (0.0-6.0); HEMATOCRIT 42.7 % (38.2-49.6); HEMOGLOBIN 14.7 g/dL (14.0-18.0); LYMPHOCYTES # (AUTO) 2.7 (1.0-3.2); LYMPHOCYTES % 22.6 % (18.0-39.1); MEAN CORPUSCULAR HEMOGLOBIN 29.6 pg (28-32); MEAN CORPUSCULAR HGB CONC 34.4 g/dL (31-35); MEAN CORPUSCULAR VOLUME 86.1 fL (81-99); MONOCYTES # (AUTO) 0.8 (0.2-0.8); MONOCYTES % 7.1 % (4.4-11.3); NEUTROPHILS % 68.1 % (38.7-80.0); PLATELET COUNT 388 x10e3/uL (140-360); RED BLOOD COUNT 4.96 x10e6/uL (4.3-5.7); RED CELL DISTRIBUTION WIDTH 12.7 % (11.7-14.4)
[2018-10-25 20:56] LABS: ALANINE AMINOTRANSFERASE 113 IU/L (0-55); ALBUMIN 4.2 g/dL (3.5-5.0); ALBUMIN/GLOBULIN RATIO 1.1 (0.8-2.0); ALKALINE PHOSPHATASE 59 IU/L (40-150); ANION GAP 14.1 mmol/L (8-16); BLOOD UREA NITROGEN 7 mg/dL (7-26); BUN/CREATININE RATIO 7 (6-25); CALCIUM 10.3 mg/dL (8.4-10.2); CARBON DIOXIDE 28 mmol/L (22-29); CHLORIDE 95 mmol/L (98-107); CREATININE, SERUM 0.95 mg/dL (0.72-1.25); EST GLOMERULAR FILTRATION RATE > 60 ML/MIN (60-); GLUCOSE 88 mg/dL (74-118); POTASSIUM 3.1 mmol/L (3.5-5.1); SODIUM 134 mmol/L (136-145)
[2018-10-25] MEDS ORDERED: ACETAMINOPHEN 325 MG TAB PO PRN (21:15)
--- NOTE | 2018-10-25 21:18 | Diagnostic Imaging Report ---
EXAMINATION: CHEST 2 VIEWS INDICATION: ^CHEST PAIN ^[id number] ^2049 COMPARISON: None FINDINGS: PA and lateral views TUBES and LINES: None. LUNGS: Lungs are well inflated. There is no evidence of pneumonia or pulmonary edema. PLEURA: No pleural effusion or pneumothorax. HEART AND MEDIASTINUM: The cardiomediastinal silhouette is unremarkable. BONES AND SOFT TISSUES: No acute osseous lesion. Soft tissues are unremarkable. UPPER ABDOMEN: No free air under the diaphragm. IMPRESSION: No acute thoracic abnormality. Signed by: Dr. Hollis Orosco MD on 10/25/2018 9:15 PM
[2018-10-25 21:29] LABS: BILIRUBIN,URINE NEGATIVE (NEGATIVE); CLARITY,URINE SL CLOUDY (CLEAR); COLOR,URINE YELLOW (YELLOW); KETONES,URINE NEGATIVE (NEGATIVE); LEUKOCYTE ESTERASE ,URINE NEGATIVE (NEGATIVE); NITRITE,URINE NEGATIVE (NEGATIVE); PROTEIN,URINE DIPSTICK NEGATIVE (NEGATIVE); URINE UROBILINOGEN 0.2 mg/dL (0.2 - 1)
[2018-10-25 21:33] LABS: BACTERIA,URINE RARE /HPF; EPITHELIAL CELLS,URINE RARE /LPF; RBC,URINE 0-5 /HPF (0-5); WBC,URINE (MAN) 0-5 /HPF (0-5)
--- NOTE | 2018-10-25 22:00 | NUR ---
PATIENT'S TEMP NOTED TO BE 101.9, OUTSIDE PARAMETERS FOR TYLENOL. PATIENT REPORTS FEELING MUCH MORE CALM NOW THAT TEST RESULTS ARE BACK AND CLEAR. REITERATED WITH PATIENT THE IMPORTANCE OF USING INCENTIVE SPIROMETER, WALKING, SPLINTING ABDOMEN TO COUGH. PATIENT VERBALIZED UNDERSTANDING. WILL CONTINUE TO MONITOR.
[2018-10-25] MEDS: LEVALBUTEROL HCL SOLN NEBU 0.63 MG/3 ML NEB INH PRN (22:56)
[2018-10-26] VITALS (8 sets, daily range): BP systolic 114–137; BP diastolic 63–81
[2018-10-26] MEDS: ACETYLCYSTEINE 20% INHAL SOLN 30 ML VIAL INH SCH ×4 (00:03→20:40)
[2018-10-26] MEDS: HYDROMORPHONE 0.2MG/ML-SOD CHL 30ML PCA SYRINGE IV PRN ×2 (01:24→13:45)
[2018-10-26 05:48] LABS: BASOPHILS # (AUTO) 0.1 (0.0-0.1); EOSINOPHILS # (AUTO) 0.1 (0.0-0.4); HEMATOCRIT 37.1 % (38.2-49.6); HEMOGLOBIN 12.6 g/dL (14.0-18.0); LYMPHOCYTES % 29.7 % (18.0-39.1); MEAN CORPUSCULAR HEMOGLOBIN 29.1 pg (28-32); MEAN CORPUSCULAR VOLUME 85.7 fL (81-99); MONOCYTES % 10.3 % (4.4-11.3); NEUTROPHILS # (AUTO) 5.8 (2.1-6.9); NEUTROPHILS % 57.5 % (38.7-80.0); PLATELET COUNT 311 x10e3/uL (140-360); RED BLOOD COUNT 4.33 x10e6/uL (4.3-5.7); RED CELL DISTRIBUTION WIDTH 12.5 % (11.7-14.4)
[2018-10-26] MEDS: DEXTROSE 5%/LACTATED RINGERS 1,000 ML IV SCH ×2 (05:50→15:31)
[2018-10-26 06:04] LABS: ANION GAP 12.1 mmol/L (8-16); BLOOD UREA NITROGEN 6 mg/dL (7-26); BUN/CREATININE RATIO 7 (6-25); CALCIUM 9.2 mg/dL (8.4-10.2); CARBON DIOXIDE 29 mmol/L (22-29); CHLORIDE 97 mmol/L (98-107); CREATININE, SERUM 0.82 mg/dL (0.72-1.25); EST GLOMERULAR FILTRATION RATE > 60 ML/MIN (60-); GLUCOSE 90 mg/dL (74-118); POTASSIUM 4.1 mmol/L (3.5-5.1); SODIUM 134 mmol/L (136-145)
[2018-10-26] MEDS: LEVALBUTEROL HCL SOLN NEBU 0.63 MG/3 ML NEB INH PRN ×3 (06:50→20:40)
[2018-10-26] MEDS: PANTOPRAZOLE 40 MG 10ML VIAL IV SCH (15:31)
--- NOTE | 2018-10-26 18:57 | NUR ---
Report given to oncoming nurse of patient's status. Sitting upright. No s/s of acute distress noted. Family at bedside. Side rails upx2, call light within reach.
--- NOTE | 2018-10-26 19:00 | NUR ---
RECEIVED PATIENT IN BEDSIDE REPORT. PATIENT REPORTS PAIN IS 4/10. 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 PATIENT VERBALIZED UNDERSTANDING. PATIENT AMBULATING OFTEN. L HAND 20G IV ASYMPTOMATIC, INTACT, AND PATENT. NO S&S OF DISTRESS NOTED. BED LOCKED IN LOWEST POSITION, SIDE RAILS UPX2, CALL LIGHT IN REACH.
[2018-10-27] VITALS (9 sets, daily range): BP systolic 125–161; BP diastolic 65–91
[2018-10-27] MEDS: LEVALBUTEROL HCL SOLN NEBU 0.63 MG/3 ML NEB INH PRN ×3 (02:15→19:40)
[2018-10-27] MEDS: ACETYLCYSTEINE 20% INHAL SOLN 30 ML VIAL INH SCH ×4 (02:15→19:40)
[2018-10-27] MEDS: DEXTROSE 5%/LACTATED RINGERS 1,000 ML IV SCH (02:30)
--- NOTE | 2018-10-27 07:45 | NUR ---
Patient alert and responsive, in bed, pains well managed, PARKING LOT MANAGER pump in place and call light within reach
--- NOTE | 2018-10-27 09:17 | NUR ---
Rounds by Dr. Simpson and new orders for GI soft diet. Will monitor
--- NOTE | 2018-10-27 10:56 | NUR ---
Report given to RN on Med Surg 2 for patient going to room 212. Patient being transferred at this time. Addendum: 10/28/18 at 0715 by Malinda Alves RN wrong chart
--- NOTE | 2018-10-27 13:11 | NUR ---
Spoke with Dr. Ch and orders for [place] 7.5mg PRN Q4 for pain. Patient tolerated GI soft diet, no N/V noted.
[2018-10-27] MEDS ORDERED: BISACODYL 10 MG SUPP PR ONE (14:00)
[2018-10-27] MEDS: HYDROCODONE/APAP 7.5MG-325MG 1 EA TAB PO PRN ×2 (14:11→20:34)
[2018-10-27] MEDS ORDERED: PANTOPRAZOLE SOD 40 MG TABEC PO SCH (16:30)
[2018-10-27] MEDS ORDERED: PANTOPRAZOLE 40 MG 10ML VIAL IV SCH (17:00)
[2018-10-27] MEDS: PIPER-TAZ 3.375 GM 50 ML IV SCH ×2 (18:01→23:46)
--- NOTE | 2018-10-27 18:22 | NUR ---
Dulcolax suppository given and patient has only past gas, no BM yet, tolerated abx well, will monitor.
--- NOTE | 2018-10-27 19:07 | NUR ---
Patient c/o burning on to his eyes, rounds by surgeon and stated eyes feeling better. Orders for 2 ounces of MOM per surgeon and orders in place. Report given to on coming nurse.
[2018-10-27] MEDS ORDERED: MAGNESIUM HYDROXIDE 30 ML UDC PO ONE (19:15)
--- NOTE | 2018-10-27 19:20 | NUR ---
Report taken from am rn.walking rounds done.ordered medication given.Assessment done.no rep.distress.bed locked and in lowest position.phone and call light within reach.informed to call for assistance as needed.
[2018-10-27] MEDS: BISACODYL 10 MG SUPP PR SCH (20:33)
[2018-10-28] VITALS: BP 125/70
--- NOTE | 2018-10-28 00:21 | NUR ---
Had a small amount of bowel movement.
[2018-10-28] MEDS: LEVALBUTEROL HCL SOLN NEBU 0.63 MG/3 ML NEB INH PRN ×3 (01:12→13:45)
[2018-10-28] MEDS: ACETYLCYSTEINE 20% INHAL SOLN 30 ML VIAL INH SCH ×3 (01:12→13:45)
[2018-10-28 04:00] VITALS: BP 120/71
[2018-10-28 05:13] LABS: BASOPHILS # (AUTO) 0.1 (0.0-0.1); BASOPHILS % 0.8 % (0.0-1.0); EOSINOPHILS # (AUTO) 0.3 (0.0-0.4); EOSINOPHILS % 3.4 % (0.0-6.0); HEMATOCRIT 35.7 % (38.2-49.6); HEMOGLOBIN 12.2 g/dL (14.0-18.0); LYMPHOCYTES # (AUTO) 2.8 (1.0-3.2); LYMPHOCYTES % 31.3 % (18.0-39.1); MEAN CORPUSCULAR HEMOGLOBIN 29.7 pg (28-32); MEAN CORPUSCULAR HGB CONC 34.2 g/dL (31-35); MEAN CORPUSCULAR VOLUME 86.9 fL (81-99); MONOCYTES # (AUTO) 0.8 (0.2-0.8); MONOCYTES % 8.6 % (4.4-11.3); NEUTROPHILS # (AUTO) 4.9 (2.1-6.9); NEUTROPHILS % 55.2 % (38.7-80.0); PLATELET COUNT 382 x10e3/uL (140-360); RED BLOOD COUNT 4.11 x10e6/uL (4.3-5.7); RED CELL DISTRIBUTION WIDTH 12.9 % (11.7-14.4)
[2018-10-28 05:36] LABS: ALANINE AMINOTRANSFERASE 64 IU/L (0-55); ALBUMIN 3.1 g/dL (3.5-5.0); ALBUMIN/GLOBULIN RATIO 0.9 (0.8-2.0); ALKALINE PHOSPHATASE 44 IU/L (40-150); ANION GAP 10.3 mmol/L (8-16); BLOOD UREA NITROGEN 6 mg/dL (7-26); BUN/CREATININE RATIO 8 (6-25); CALCIUM 9.4 mg/dL (8.4-10.2); CARBON DIOXIDE 27 mmol/L (22-29); CHLORIDE 102 mmol/L (98-107); CREATININE, SERUM 0.78 mg/dL (0.72-1.25); EST GLOMERULAR FILTRATION RATE > 60 ML/MIN (60-); GLUCOSE 74 mg/dL (74-118); POTASSIUM 4.3 mmol/L (3.5-5.1); SODIUM 135 mmol/L (136-145)
[2018-10-28] MEDS: PIPER-TAZ 3.375 GM 50 ML IV SCH ×2 (05:40→11:47)
--- NOTE | 2018-10-28 07:06 | NUR ---
Report given to the oncoming rn.walking rounds done.stable condition.
--- NOTE | 2018-10-28 07:17 | NUR ---
RECEIVED PATIENT ASLEEP IN BED NO SIGNS OF DISTRESS. BED LOW, WHEELS LOCKED, SIDE RAILS X2. CALL LIGHT IN REACH WILL CONTINUE TO MONITOR PATIENT.
[2018-10-28 07:37] VITALS: BP 118/58
[2018-10-28] MEDS: BISACODYL 10 MG SUPP PR SCH (08:00)
[2018-10-28 08:40] VITALS: BP 118/58
--- NOTE | 2018-10-28 08:45 | NUR ---
PATIENT A/O X3, EVEN RESPIRATIONS ON RA. BOWEL SOUNDS ACTIVE. PATIENT HAD LIQUID BM THIS MORNING. LEFT HAND 20 GAUGE SL INTACT AND PATENT. VITAL SIGNS STABLE. ABDOMINAL INCISION OPEN TO AIR, NO DRAINAGE. ENCOURAGED PATIENT TO AMBULATE. MOM AT BEDSIDE. CALL LIGHT IN REACH. WILL CONTINUE TO MONITOR PATIENT.
[2018-10-28] MEDS: HYDROCODONE/APAP 7.5MG-325MG 1 EA TAB PO PRN (08:57)
[2018-10-28 12:20] VITALS: BP 110/74
[2018-10-28] MEDS ORDERED: LEVAQUIN500 MG PO (12:24)
[2018-10-28] MEDS ORDERED: NORCO 7.5-3251 EACH PO (12:24)
--- NOTE | 2018-10-28 13:30 | NUR ---
REMOVED PATIENTS IV. CATHETER TIP INTACT AND PRESSURE DRESSING APPLIED.
--- NOTE | 2018-10-28 13:50 | NUR ---
PATIENT DISCHARGED FROM FACILITY. PATIENT GATHERED ALL PERSONAL BELONGINGS, DISCHARGED INSTRUCTIONS, AND FOLLOW UP INFORMATION. LEFT UNIT IN WHEELCHAIR AND WENT HOME VIA PRIVATE AUTO. NO SIGNS OF DISTRESS WHEN LEAVING FACILITY.
== END 2018-10-28 13:50 | disposition home or self-care (01) | DRG 331 ==
LOC: OR 06:08 → PACU V 12:32 → MED/SURG 15:32
PROVIDERS: ADMIT Surgery; ATTEND Surgery
PROC: 0DTG0ZZ Resection of Left Large Intestine, Open Approach (ICD-10-PCS; principal; 2018-10-22 08:53)
PROC: 0DTN0ZZ Resection of Sigmoid Colon, Open Approach (ICD-10-PCS; 2018-10-22 08:53)
DX: K57.20 Diverticulitis of large intestine with perforation and abscess without bleeding (principal); R50.9 Fever, unspecified; Z01.812 Encounter for preprocedural laboratory examination
CPT/HCPCS: 36415; 71046; 80048; 80053; 81001; 85025; 87040; 87086; 88307; 94640; C1766; J0694; J1100; J1885; J2001; J2250; J2405; J2543

== ENCOUNTER 2018-12-07 15:51 | Emergency (ER) | payer BC ==
[~2018-12-07] VITALS: Ht 172.7 cm; Wt 105.7 kg
[~2018-12-07 15:51] MED LIST changes: +NORCO 7.5-3251 EACH PO
[2018-12-07] MEDS ORDERED: SODIUM CHLORIDE 0.9% 1000ML 1,000 ML IV STA (16:36)
[2018-12-07] MEDS ORDERED: DICYCLOMINE HCL 20 MG/2 ML VIAL IM ONE (16:45)
[2018-12-07 17:41] LABS: BASOPHILS # (AUTO) 0.1 (0.0-0.1); EOSINOPHILS % 0.4 % (0.0-6.0); HEMATOCRIT 43.4 % (38.2-49.6); HEMOGLOBIN 14.4 g/dL (14.0-18.0); LYMPHOCYTES # (AUTO) 2.3 (1.0-3.2); LYMPHOCYTES % 27.5 % (18.0-39.1); MEAN CORPUSCULAR HEMOGLOBIN 29.1 pg (28-32); MEAN CORPUSCULAR HGB CONC 33.2 g/dL (31-35); MEAN CORPUSCULAR VOLUME 87.7 fL (81-99); MONOCYTES # (AUTO) 0.6 (0.2-0.8); NEUTROPHILS # (AUTO) 5.2 (2.1-6.9); NEUTROPHILS % 63.2 % (38.7-80.0); PLATELET COUNT 409 x10e3/uL (140-360); RED BLOOD COUNT 4.95 x10e6/uL (4.3-5.7); RED CELL DISTRIBUTION WIDTH 12.9 % (11.7-14.4)
[2018-12-07 17:52] LABS: BILIRUBIN,URINE NEGATIVE (NEGATIVE); CLARITY,URINE CLEAR (CLEAR); COLOR,URINE YELLOW (YELLOW); KETONES,URINE NEGATIVE (NEGATIVE); LEUKOCYTE ESTERASE ,URINE NEGATIVE (NEGATIVE); NITRITE,URINE NEGATIVE (NEGATIVE); PROTEIN,URINE DIPSTICK NEGATIVE (NEGATIVE); URINE UROBILINOGEN 0.2 mg/dL (0.2 - 1)
[2018-12-07 18:03] LABS: ALANINE AMINOTRANSFERASE 27 IU/L (0-55); ALBUMIN 4.2 g/dL (3.5-5.0); ALBUMIN/GLOBULIN RATIO 1.2 (0.8-2.0); ALKALINE PHOSPHATASE 63 IU/L (40-150); ANION GAP 14.2 mmol/L (8-16); BLOOD UREA NITROGEN 9 mg/dL (7-26); BUN/CREATININE RATIO 11 (6-25); CALCIUM 10.4 mg/dL (8.4-10.2); CARBON DIOXIDE 26 mmol/L (22-29); CHLORIDE 103 mmol/L (98-107); CREATININE, SERUM 0.82 mg/dL (0.72-1.25); EST GLOMERULAR FILTRATION RATE > 60 ML/MIN (60-); GLUCOSE 84 mg/dL (74-118); LIPASE 20 U/L (8-78); POTASSIUM 4.2 mmol/L (3.5-5.1); SODIUM 139 mmol/L (136-145)
[2018-12-07 18:32] LABS: BACTERIA,URINE RARE /HPF; EPITHELIAL CELLS,URINE RARE /LPF; RBC,URINE 0-5 /HPF (0-5); WBC,URINE (MAN) 0-5 /HPF (0-5)
[2018-12-07] MEDS ORDERED: SODIUM CHLORIDE 0.9% 50ML 50 ML ONE (18:48)
[2018-12-07] MEDS ORDERED: IOPAMIDOL 370 MG/ML 200 ML INFUS..BTL INJ ONE (18:49)
--- NOTE | 2018-12-07 20:05 | Diagnostic Imaging Report ---
EXAM: CT Abdomen and Pelvis WITH contrast INDICATION: Abdominal pain. COMPARISON: . TECHNIQUE: Abdomen and pelvis were scanned utilizing a multidetector helical scanner from the lung base to the pubic symphysis after administration of IV contrast. Coronal and sagittal reformations were obtained. Routine protocol was performed. Scan was performed when during portal venous phase. IV CONTRAST: 100 cc is of view 300 ORAL CONTRAST: Water RADIATION DOSE: Total DLP: 829.51 mGy*cm Estimated effective dose: (DLP x 0.015 x size factor) mSv COMPLICATIONS: None FINDINGS: LINES and TUBES: None. LOWER THORAX: Unremarkable HEPATOBILIARY: No focal hepatic lesions. No biliary ductal dilation. GALLBLADDER: No radio-opaque stones or sludge. No wall thickening. SPLEEN: No splenomegaly. PANCREAS: No focal masses or ductal dilatation. ADRENALS: No adrenal nodules KIDNEYS/URETERS: Kidneys enhance symmetrically. No hydronephrosis. Right renal cysts again observed, the largest in the posterior interpolar region measuring 4.5 cm. 8 mm cyst in the posterior interpolar region of the left kidney. 5 mm cyst in the anterior upper pole of the right kidney on image 33. 4 mm cyst in the upper pole of the right kidney anteriorly on image 30. No stones. GI TRACT: No bowel dilatation to suggest obstruction. Motion limited due to the lack of oral contrast. There is a rectosigmoid anastomosis which appears grossly intact. There is diffuse scattered colonic diverticulosis, with mild pericolic fat stranding along the mid to distal descending colon which could be related to recent surgery, however, could reflect diverticulitis in the proper setting. There is residual wall thickening and perisigmoid stranding proximal to the anastomosis. No abscess formation. PELVIC ORGANS/BLADDER: Unremarkable. LYMPH NODES: No lymphadenopathy. VESSELS: Unremarkable. PERITONEUM / RETROPERITONEUM: No free air or fluid. BONES: No acute abnormality. SOFT TISSUES: Bilateral small fat-containing renal hernias versus lipomatosis of the spermatic cord. Stranding of the left lower quadrant anterior subcutaneous region consistent with postoperative change without general fluid collection.. IMPRESSION: 1. Interval partial sigmoidectomy, with rectosigmoid anastomosis. Stranding about the anastomosis and along the mid to distal descending colon may be postoperative change versus diverticulitis in the proper setting. No abscess formation. Otherwise no significant change. Signed by: Dr. Senthil Hinkle M.D. on 12/07/2018 8:02 PM
[2018-12-07 20:28] VITALS: BP 144/75
== END 2018-12-07 20:38 | disposition home or self-care (01) ==
LOC: ER 15:51
DX: R10.32 Left lower quadrant pain (principal); R11.0 Nausea; Z98.0 Intestinal bypass and anastomosis status; Z87.442 Personal history of urinary calculi
CPT/HCPCS: 36415; 74177; 80053; 81001; 83690; 85025; 87086; 99284; J0500; J7030; Q9967

== ENCOUNTER → 2021-06-23 | Day surgery (SDC) | payer BC, OTHER ==
[~2021-06-23] MED LIST changes: +ATIVAN1 MG PO; +FENTANYL CITRATE/PF 100MCG/2 ML INJ ONE; +FISH OIL 1,0001 EAC2 PO; +LIDOCAINE HCL 2% LOCAL INJ 5 ML SDV VIAL INJ ONE; +MENS ONE A DAY PO; +MIDAZOLAM HCL 2 MG/2 ML VIAL ONE; +PROPOFOL IV EMULSION 10 MG/ML 20 ML VIAL ONE
[2021-06-23 13:50] VITALS: BP 107/63
== END | disposition home or self-care (01) ==
LOC: OR 09:51
PROVIDERS: ATTEND Internal Medicine Gastroenterology
DX: K29.70 Gastritis, unspecified, without bleeding (principal); K29.80 Duodenitis without bleeding; K20.90 Esophagitis, unspecified without bleeding; K57.90 Diverticulosis of intestine, part unspecified, without perforation or abscess without bleeding; N20.0 Calculus of kidney; F41.9 Anxiety disorder, unspecified; Z01.812 Encounter for preprocedural laboratory examination; Z20.822 Contact with and (suspected) exposure to COVID-19; Z79.899 Other long term (current) drug therapy
CPT/HCPCS: 43239; C9113; J2250; J3010; U0002; J2001